=== PATIENT | female | born 1945 | race Caucasian/White ===

== ENCOUNTER 2023-02-03 20:27 | Emergency (ER) | payer MEDICARE, SELFPAY ==
[2023-02-03 20:32] VITALS: BP 145/88; PULSE 92; RESP 18; TEMP 36.5; O2SAT 98; BMI 34.4
--- NOTE | 2023-02-03 20:45 | XR_ITS ---
[address] [address] Patient Name: CHESTER POOL MRN: [id number] date: 1945 Sex: F Assigned Patient Location: ER Current Patient Location: Accession/Order Number: [id number] Exam Date: 02/03/2023 20:58 Report Date: 02/03/2023 21:21 At the request of: LICHA LAL Procedure: XR knee LT 3V EXAM: XR knee LT 3V HISTORY: Fall COMPARISON: None. TECHNIQUE: 4 views FINDINGS: IMPRESSION: Patient is status post total knee replacement arthroplasty. Periprosthetic intra-articular fracture of the medial aspect of the tibial plateau. No prosthetic displacement. Large lipohemarthrosis. Superficial subcutaneous soft tissue edema. Electronically authenticated by: FUNMI SANTIAGO Date: 02/03/2023 21:21
--- NOTE | 2023-02-03 20:45 | ED.LOWEXI1 ---
HPI - Extremity Injury (Lower) General Chief Complaint: Extremity Injury, Lower Stated Complaint: LOWER PAIN Time Seen by Provider: 02/03/23 20:42 Source: patient Mode of arrival: Wheelchair Limitations: no limitations History of Present Illness HPI Narrative: states she was walking and her dogs ran from behind her striking the back of her legs and knocking her down. Past history of bilat TKA. States she injured her right knee. Injury about 45 minutes ago. Denies other injury. Denies weakness of her lower extremities. Not able to weight bear on the left leg. No hip or back injury or pain. Did not strike her head or injury her neck. No nausea MD complaint: Reports knee injury Related Data Home Medications Medication Instructions Recorded Confirmed amlodipine 10 mg tablet (Norvasc) 10 mg PO DAILY 02/03/23 02/03/23 atorvastatin 80 mg tablet (Lipitor) 80 mg PO DAILY 02/03/23 02/03/23 calcium carbonate 600 mg calcium 600 mg PO DAILY 02/03/23 02/03/23 (1,500 mg) tablet (Super Calcium) cholecalciferol (vitamin D3) 125 5,000 unit PO DAILY 02/03/23 02/03/23 mcg (5,000 unit) tablet (Vitamin D3) coenzyme Q10 100 mg capsule 200 mg PO DAILY 02/03/23 02/03/23 (CoQ-10) furosemide 40 mg tablet 40 mg PO DAILY 02/03/23 02/03/23 magnesium 200 mg tablet 400 mg PO DAILY 02/03/23 02/03/23 mecobalamin (vitamin B12) 5,000 mcg PO 02/03/23 mcg disintegrating tablet sitagliptin phosphate 50 mg tablet 50 mg PO DAILY 02/03/23 02/03/23 (Januvia) zolpidem 10 mg tablet (Ambien) 10 mg PO DAILY 02/03/23 02/03/23 Allergies Allergy/AdvReac Type Severity Reaction Status Date / Time No Known Drug Allergies Allergy Verified 02/03/23 20:36 Review of Systems ROS Status of ROS 10 or more systems reviewed and unremarkable except as noted in history and below Exam Constitutional Vital Signs, click to edit/add: Last Vital Signs Temp 97.7 F 02/03/23 20:32 Pulse 92 H 02/03/23 20:32 Resp 18 02/03/23 20:32 BP 145/88 H 02/03/23 20:32 Pulse Ox 98 02/03/23 20:32 O2 Del Method Room Air 02/03/23 20:32 Common normals: oriented x3, healthy appearing and alert Eye Common normals: EOMs intact bilaterally and conjunctivae normal Respiratory Common normals: normal respiratory effort, no retractions, no use of accessory muscles and clear to auscultation bilaterally Cardio Common normals: regular rate, regular rhythm, S1 normal heart sound and S2 normal heart sound GI Common normals: Normal to inspection, nondistended, normoactive bowel sounds present, soft to palpation and non-tender Extremity Other: effusion left knee. Gen. [id number] knee. very limited ROM left knee Neuro Common normals: oriented x3, CN's II-XII intact bilaterally and no focal motor deficits Psych Appearance: grossly normal Course Vital Signs Vital signs: Vital Signs Temperature 97.7 F 02/03/23 20:32 Pulse Rate 92 H 02/03/23 20:32 Respiratory Rate 18 02/03/23 20:32 Blood Pressure 145/88 H 02/03/23 20:32 Pulse Oximetry 98 02/03/23 20:32 Oxygen Delivery Method Room Air 02/03/23 20:32 Temperature 97.7 F 02/03/23 20:32 Pulse Rate 92 H 02/03/23 20:32 Respiratory Rate 18 02/03/23 20:32 Blood Pressure 145/88 H 02/03/23 20:32 Pulse Oximetry 98 02/03/23 20:32 Oxygen Delivery Method Room Air 02/03/23 20:32 MDM - Extremity Injury (Lower) MDM Narrative Medical decision making narrative: patient presents after she was struck from behind her legs by her dogs. She sustained a nondisplaced tibia plateau fracture. She describes throbbing pain. she has an orthopedic surgeon who performed both of her past TKA. her pain improved enough where she was comfortable going home with family . Did offer to transfer her to her physician's hospital if she felt she could not go home. She and her family preferred to go home and follow up as an out patient. Advised non weight bearing. Discharged home with Percocet Discharge Plan Discharge Chief Complaint: Extremity Injury, Lower Clinical Impression: Closed fracture of left tibial plateau Patient Disposition: Home, Self-Care Condition: Fair Mode of Transportation: Private Vehicle Prescriptions / Home Meds: No Action atorvastatin [Lipitor] 80 mg tablet 80 mg PO DAILY amlodipine [Norvasc] 10 mg tablet 10 mg PO DAILY Januvia 50 mg tablet 50 mg PO DAILY furosemide 40 mg tablet 40 mg PO DAILY zolpidem [Ambien] 10 mg tablet 10 mg PO DAILY mecobalamin (vitamin B12) 5,000 mcg tablet,disintegrating PO calcium carbonate [Super Calcium] 600 mg calcium (1,500 mg) tablet 600 mg PO DAILY magnesium 200 mg tablet 400 mg PO DAILY cholecalciferol (vitamin D3) [Vitamin D3] 125 mcg (5,000 unit) tablet 5,000 unit PO DAILY coenzyme Q10 [CoQ-10] 100 mg capsule 200 mg PO DAILY Instructions: Closed Reduction Internal Fixation of Leg Fracture in Adults (DC) Additional Instructions: follow up with your orthopedic surgeon in the next couple of days. No weight bearing Stand Alone Forms: Portal Instructions Referrals: Physician,Non-Staff, MD [Primary Care Provider] - 1 week Discharge Date/Time: 02/04/23 01:54
[2023-02-03] MEDS: MORPHINE SULFATE 4 MG/ML VIAL IM (21:31)
[2023-02-03] MEDS: HYDROMORPHONE HCL 0.5 MG/0.5 ML SYRINGE IM (22:16)
[2023-02-03] MEDS: HYDROMORPHONE HCL 1 MG/ML CARTRIDGE IM (22:54)
[2023-02-03] MEDS: METHYLPREDNISOLONE SOD SUCC PF 125 MG/2 ML VIAL IM (23:47)
[2023-02-03] MEDS: KETOROLAC TROMETHAMINE 60 MG/2 ML VIAL IM (23:47)
[2023-02-04] MEDS: ONDANSETRON 4 MG RAPDIS TABLET SL (00:21)
== END 2023-02-04 01:54 | disposition home or self-care (01) ==
PROVIDERS: Emergency Provider Internal Medicine
DX: S82.145A Nondisplaced bicondylar fracture of left tibia, initial encounter for closed fracture (principal); Z96.653 Presence of artificial knee joint, bilateral; Z79.899 Other long term (current) drug therapy; W54.1XXA Struck by dog, initial encounter
CPT/HCPCS: 73562; 96372; 99284; J1170; J2930

== ENCOUNTER 2024-09-06 02:29 | Emergency (ER) | payer MEDICARE, SELFPAY ==
[2024-09-06 02:35] VITALS: BP 128/76; PULSE 56; TEMP 36.7; O2SAT 98; BMI 30.5
--- NOTE | 2024-09-06 02:47 | ED.WOUNDLAC1 ---
HPI - Wound/Laceration General Chief Complaint: Wound/Laceration Stated Complaint: LOWER EXTREMITY INJURY Time Seen by Provider: 09/06/24 02:32 Source: patient Mode of arrival: Wheelchair Limitations: no limitations History of Present Illness HPI narrative: This 79-year-old female who is on Plavix presents for evaluation of a laceration to the medial aspect of her left lower leg. The patient states that her dog woke her up to use the bathroom and she was trying to get her shoes on. She was wearing Crocs and one of them was upside down, she was trying to upright it before putting it on when she tripped over the shoe and hit the coffee table with her left lower leg. She sustained approximately 7 cm laceration to this area. She thinks that her tetanus is up-to-date. She did not fall. She denies any chest pain or shortness of breath. She states that her wanted to call EMS due to the amount of bleeding but she convinced him to just bring her to the emergency department. Related Data Home Medications ?Medication ?Instructions ?Recorded ?Confirmed amlodipine 10 mg tablet (Norvasc) 10 mg PO DAILY 02/03/23 09/06/24 atorvastatin 80 mg tablet (Lipitor) 80 mg PO DAILY 02/03/23 09/06/24 furosemide 40 mg tablet 40 mg PO DAILY 02/03/23 09/06/24 mecobalamin (vitamin B12) 5,000 500 mcg PO 02/03/23 mcg disintegrating tablet sitagliptin phosphate 50 mg tablet 50 mg PO DAILY 02/03/23 09/06/24 (Januvia) zolpidem 10 mg tablet (Ambien) 10 mg PO DAILY 02/03/23 09/06/24 clopidogrel 75 mg tablet (Plavix) 75 mg PO DAILY 09/06/24 09/06/24 Allergies Allergy/AdvReac Type Severity Reaction Status Date / Time No Known Drug Allergies Allergy Verified 09/06/24 02:37 Review of Systems ROS Status of ROS 10 or more systems reviewed and unremarkable except as noted in history and below Exam Narrative Exam Narrative: Vital signs and Nursing Notes reviewed: Patient is afebrile, bradycardic with a pulse of 56, blood pressure is normal at 128/76, she is not hypoxic with pulse ox of 98% on room air General: Awake, alert, oriented, no acute distress, lying comfortably on the stretcher HEENT: Normocephalic atraumatic, mucous membranes are moist and pink, eyes are clear, normal conjunctiva, vision is grossly intact Chest: Lungs are clear to auscultation with good air entry, there is no wheezing rhonchi or rales appreciated no accessory muscle use, patient is speaking in complete sentences-no chest wall tenderness to palpation CVS: Regular rate and rhythm S1-S2, no murmurs rubs or gallops, pulses are brisk and equal bilaterally Extremities: Moving all extremities, 7 cm horizontal laceration to the posterior proximal aspect of the left lower leg. Mild active bleeding noted. Neurovascularly the patient is intact. Foot is warm and sensate. Skin: Normal in appearance without rash,pallor, petechiae or purpura Neuro: No focal deficits Constitutional Vital Signs, click to edit/add: Last Vital Signs Temp 98.0 F 09/06/24 02:35 Pulse 56 L 09/06/24 02:35 Resp 18 09/06/24 02:35 BP 128/76 09/06/24 02:35 Pulse Ox 98 09/06/24 02:35 O2 Del Method Room Air 09/06/24 02:35 Course Vital Signs Vital signs: Vital Signs Temperature 98.0 F 09/06/24 02:35 Pulse Rate 56 L 09/06/24 02:35 Respiratory Rate 18 09/06/24 02:35 Blood Pressure 128/76 09/06/24 02:35 Pulse Oximetry 98 09/06/24 02:35 Oxygen Delivery Method Room Air 09/06/24 02:35 Temperature 98.0 F 09/06/24 02:35 Pulse Rate 56 L 09/06/24 02:35 Respiratory Rate 18 09/06/24 02:35 Blood Pressure 128/76 09/06/24 02:35 Pulse Oximetry 98 09/06/24 02:35 Oxygen Delivery Method Room Air 09/06/24 02:35 MDM - Wound/Laceration MDM Narrative Medical decision making narrative: This 79-year-old female who is on Plavix presents for evaluation of a laceration to the left medial lower leg that she sustained after hitting a coffee table at home after getting up to let her dogs out. Her tetanus was updated. Laceration was closed with 3-0 Ethilon sutures. She was discharged home with wound care instructions with recommendation for suture removal in the next 12 to 14 days. Discharge Plan Discharge Chief Complaint: Wound/Laceration Clinical Impression: Laceration of leg Patient Disposition: Home, Self-Care Time of Disposition Decision: 03:34 Condition: Good Prescriptions / Home Meds: No Action atorvastatin [Lipitor] 80 mg tablet 80 mg PO DAILY amlodipine [Norvasc] 10 mg tablet 10 mg PO DAILY Januvia 50 mg tablet 50 mg PO DAILY furosemide 40 mg tablet 40 mg PO DAILY zolpidem [Ambien] 10 mg tablet 10 mg PO DAILY mecobalamin (vitamin B12) 5,000 mcg tablet,disintegrating 500 mcg PO clopidogrel [Plavix] 75 mg tablet 75 mg PO DAILY Print Language: Montenegrin Instructions: Care For Your Stitches (ED), Laceration (ED) Additional Instructions: Sutures can be removed in 12 to 14 days. Please keep the area covered with a dry dressing. Return to the emergency department for redness, swelling, warmth, purulent drainage or fever. Referrals: Gely Esparza DO [Primary Care Provider] - 1 week Procedures ED Procedure Instructions Procedures Procedures: Left lower leg laceration repair; the wound was cleaned by the nursing staff. Wound edges were irrigated with 1% lidocaine with epinephrine. When anesthesia was obtained 9, 3-0 Ethilon sutures were placed into the wound with good wound edge approximation. Patient tolerated procedure well. Sterile bacitracin dressing was placed by the nursing staff. Wound care instructions were given to the patient and her .
[2024-09-06] MEDS: BACITRACIN 0.9 GM PACKET 1 PACKET TOPICAL (03:40)
[2024-09-06] MEDS: ADACEL DIPH,PERTUSS(ACELL),TET VAC/PF 0.5 ML ADULT SYRINGE IM (03:41)
[2024-09-06] MEDS: LIDOCAINE HCL 1%-EPINEPHRINE 1:100,000 20 ML MDV INJ (03:41)
== END 2024-09-06 03:49 | disposition home or self-care (01) ==
PROVIDERS: Emergency Provider Emergency Medicine
DX: S81.812A Laceration without foreign body, left lower leg, initial encounter (principal); W22.03XA Walked into furniture, initial encounter; Z79.02 Long term (current) use of antithrombotics/antiplatelets; Z23 Encounter for immunization
CPT/HCPCS: 12002; 81001; 90471; 90715; 99284